=== PATIENT | female | born 2000 | race Caucasian/White ===

== ENCOUNTER 2018-09-19 16:35 | Emergency (ER) | payer OTHER ==
[~2018-09-19] VITALS: Ht 157.5 cm; Wt 83.5 kg
[2018-09-19 18:35] VITALS: BP 105/62
== END 2018-09-19 18:35 | disposition home or self-care (01) ==
LOC: ED 16:35
DX: J06.9 Acute upper respiratory infection, unspecified (principal); R07.89 Other chest pain

== ENCOUNTER 2019-01-18 16:24 | Emergency (ER) | payer OTHER ==
[~2019-01-18] VITALS: Ht 160 cm; Wt 85.3 kg
[2019-01-18 16:37] VITALS: BP 117/70; Ht 160 cm; Wt 85.3 kg
== END 2019-01-18 17:35 | disposition home or self-care (01) ==
LOC: ED 16:24
DX: S00.452A Superficial foreign body of left ear, initial encounter (principal); S00.451A Superficial foreign body of right ear, initial encounter; W45.8XXA Other foreign body or object entering through skin, initial encounter; Y93.89 Activity, other specified; Y92.89 Other specified places as the place of occurrence of the external cause; Y99.8 Other external cause status